=== PATIENT | male | born 2000 | race Caucasian/White ===

== ENCOUNTER 2022-08-26 03:21 | Emergency (ER) | payer SELFPAY ==
[~2022-08-26] VITALS: Ht 162.6 cm; Wt 67.6 kg
[2022-08-26 03:23] VITALS: BP 142/82; PULSE 85; RESP 20; TEMP 98; O2SAT 96
--- NOTE | 2022-08-26 03:30 | NUR ---
PT СЕРГЕЙ BLS. TAKEN TO BED 6
--- NOTE | 2022-08-26 04:03 | NUR ---
PT AT BEDSIDE
--- NOTE | 2022-08-26 04:58 | NUR ---
Attempted to wake the patient to do ambulatory test. Patient is still sleeping. Patient was aroused to sternal rub but unable to stand up to walk. Will try again later.
[2022-08-26 06:00] VITALS: BP 114/65; PULSE 69; RESP 19; TEMP 98; O2SAT 98
--- NOTE | 2022-08-26 06:00 | NUR ---
Patient discharged with v/s stable. Written and verbal after care instructions given and explained. Patient verbalized understanding. Ambulatory with steady gait. All questions addressed prior to discharge. Accompanied by . Advised to follow up with PMD.
== END 2022-08-26 06:00 | disposition home or self-care (01) ==
LOC: MED 03:21
DX: F10.129 Alcohol abuse with intoxication, unspecified (principal); F43.20 Adjustment disorder, unspecified
CPT/HCPCS: 99283